=== PATIENT | male | born 1950 | race Caucasian/White ===

== ENCOUNTER 2018-04-03 09:51 | Emergency (ER) | payer BC, MEDICARE, OTHER ==
[~2018-04-03] VITALS: Ht 188 cm; Wt 115.0 kg
[2018-04-03 10:13] VITALS: BP 155/74
--- NOTE | 2018-04-03 10:26 | NUR ---
Pt to 18 from lobby
--- NOTE | 2018-04-03 10:27 | NUR ---
pt ambulatory with steady gait to room. pt given gown and asked to change
[2018-04-03] MEDS ORDERED: SODIUM CHLORIDE FLUSH 10ML SYR IVF ONE (10:30)
[2018-04-03] MEDS ORDERED: LOVA40TA2 PO (10:52)
[2018-04-03] MEDS ORDERED: RAMI10CA59 PO (10:52)
[2018-04-03] MEDS ORDERED: AMLO10TA8 PO (10:52)
[2018-04-03] MEDS ORDERED: ASPI500T4 PO (10:52)
[2018-04-03] MEDS ORDERED: OMEP-110 PO (10:52)
--- NOTE | 2018-04-03 10:52 | NUR ---
PT AMBULATORY TO ROOM FROM [facility]. STATES THAT HE WAS READING A BOOK THIS MORNING AND ALL OF A SUDDEN HE COULDN'T UNDERSTAND THE WORDS AND ALSO HAD A SUDDEN ONSET OF A KING. PT STATES HE DID NOT NOTICE ANY OTHER DEFECITS. PT TOOK 325MG OF EC ASA. STATES THAT SYMPTOMS RESSOLVED "SHORTLY AFTER TAKING THE ASPIRIN" PT PRESENTS NOW WITH NO DEFICITS NOTED. KING 1/10 PAIN. PIV STARTED AND LABS DRAWN. PT TO MRI WITH TECH TRANSPORT
[2018-04-03 11:19] LABS: BASOPHILS # (AUTO) 0.07 x10^3/uL (0-0.1); BASOPHILS % (AUTO) 1 % (0-1); EOSINOPHILS # (AUTO) 0.29 x10^3/uL (0-0.4); EOSINOPHILS % (AUTO) 4 % (1-7); LYMPHOCYTES # (AUTO) 2.43 x10^3/uL (1-3.4); LYMPHOCYTES % (AUTO) 37 % (22-44); MD NO; MEAN CORPUSCULAR HEMOGLOBIN 29.2 pg (27.5-34.5); MEAN CORPUSCULAR HGB CONC 33.1 g/dL (33.2-36.2); MEAN CORPUSCULAR VOLUME 88.3 fL (81-97); MEAN PLATELET VOLUME 10.3 fL (7.4-10.4); MONOCYTES # (AUTO) 0.57 x10^3/uL (0.2-0.8); MONOCYTES % (AUTO) 9 % (2-9); NEUTROPHILS # (AUTO) 3.17 x10^3/uL (1.8-6.8); NEUTROPHILS % (AUTO) 49 % (42-75); PLATELET COUNT 191 x10^3/uL (130-400); RED BLOOD COUNT 5.38 x10^6/uL (4.38-5.82); RED CELL DISTRIBUTION WIDTH 13.5 % (9.4-14.8)
[2018-04-03 11:30] LABS: ALBUMIN 3.8 g/dL (3.4-5.0); ANION GAP 7 mmol/L (5-15); CALCIUM 8.6 mg/dL (8.5-10.1); CHLORIDE 109 mmol/L (98-107); CREATININE 1.02 mg/dL (0.7-1.3)
[2018-04-03 12:05] LABS: INTERNATIONAL NORMALIZED RATIO 1.09 (0.93-1.1); PROTHROMBIN TIME 11.4 Seconds (9.6-11.5)
--- NOTE | 2018-04-03 12:17 | NUR ---
PT OOB AMBULATE TO BATHROOM UPRIGHT STEADY GAIT. RTD TO ROOM W/O INCIDENT
--- NOTE | 2018-04-03 12:52 | NUR ---
Patient/Caregiver given discharge instructions and they have confirmed that they understand the instructions. Patient ambulatory with steady gait.
== END 2018-04-03 12:53 | disposition home or self-care (01) ==
LOC: ED 11:23
DX: I66.9 Occlusion and stenosis of unspecified cerebral artery (principal); I10 Essential (primary) hypertension; E78.5 Hyperlipidemia, unspecified
CPT/HCPCS: 36415; 70551; 71045; 80048; 82040; 85025; 85610; 85730; 93005; 99284

== ENCOUNTER 2020-04-24 10:44 | Outpatient (CLI) | payer MEDICARE ==
[~2020-04-24 10:44] MED LIST: AMLO-211 PO; ASPI500T4 PO; LOVA40TA2 PO; OMEP-110 PO; RAMI10CA59 PO
== END 2020-04-24 23:59 | disposition home or self-care (01) ==
LOC: CVU 10:44 → CFH 23:59
PROVIDERS: ATTEND Internal Medicine Clinical Cardiac Electrophysiology
DX: I08.1 Rheumatic disorders of both mitral and tricuspid valves (principal); I45.10 Unspecified right bundle-branch block; R07.9 Chest pain, unspecified
CPT/HCPCS: 78452; 93017; A9502; C8929; Q9957

== ENCOUNTER 2020-09-30 12:11 | Day surgery (SDC) | payer MEDICARE ==
[~2020-09-30] VITALS: Ht 188 cm; Wt 115.0 kg
[2020-09-30] MEDS ORDERED: NIAC-27 PO (12:49)
[2020-09-30 13:17] LABS: BASOPHILS % (AUTO) 1 % (0-1); EOSINOPHILS % (AUTO) 3 % (1-7); LYMPHOCYTES % (AUTO) 33 % (22-44); MEAN CORPUSCULAR HEMOGLOBIN 29.2 pg (27.5-34.5); MONOCYTES % (AUTO) 8 % (2-9); NEUTROPHILS % (AUTO) 55 % (42-75); PLATELET COUNT 198 x10^3/uL (130-400); RED BLOOD COUNT 5.52 x10^6/uL (4.38-5.82); RED CELL DISTRIBUTION WIDTH 13.7 % (9.4-14.8)
[2020-09-30 13:22] LABS: ANION GAP 6 mmol/L (5-15); CALCIUM 9.4 mg/dL (8.5-10.1); CHLORIDE 106 mmol/L (98-107); CREATININE 1.03 mg/dL (0.7-1.3)
[2020-09-30] MEDS ORDERED: MIDAZOLAM 1 MG/ML, 5ML ONE (14:24)
[2020-09-30] MEDS ORDERED: FENTANYL PF 100 MCG/2ML ONE (14:24)
[2020-09-30] MEDS ORDERED: HEPARIN 1,000 UNITS/ML, 10ML ONE (14:25)
[2020-09-30] MEDS ORDERED: TICAGRELOR 90 MG TABLET ONE (14:25)
[2020-09-30] MEDS ORDERED: LIDOCAINE-MPF 1%, 5ML ONE (14:25)
[2020-09-30] MEDS ORDERED: VERAPAMIL 2.5 MG/ML, 2ML ONE (14:25)
[2020-09-30] MEDS ORDERED: BIVALIRUDIN 250 MG ONE (14:25)
[2020-09-30] MEDS ORDERED: SODIUM CHLORIDE 0.9% 1,000 ML IV SCH (15:30)
== END 2020-09-30 16:29 | disposition home or self-care (01) ==
LOC: CACL 12:11
PROVIDERS: ATTEND Internal Medicine Cardiovascular Disease
DX: Z01.810 Encounter for preprocedural cardiovascular examination (principal); I51.89 Other ill-defined heart diseases; I25.10 Atherosclerotic heart disease of native coronary artery without angina pectoris; I25.83 Coronary atherosclerosis due to lipid rich plaque; I45.10 Unspecified right bundle-branch block; I10 Essential (primary) hypertension; E78.5 Hyperlipidemia, unspecified; Z79.82 Long term (current) use of aspirin; Z79.899 Other long term (current) drug therapy; Z86.73 Personal history of transient ischemic attack (TIA), and cerebral infarction without residual deficits
CPT/HCPCS: 36415; 80048; 85025; 93454; 99156; C1769; C1894; J1644; J2250; J3010; Q9967; J0583